=== PATIENT | female | born 1995 | race Hispanic/Latino ===

== ENCOUNTER 2022-01-10 14:15 | Outpatient (CLI) | payer OTHER | END 2022-01-10 14:16 | disposition home or self-care (01) | LOC: CSHLAB 14:15 | PROVIDERS: ATTEND Advanced Practice Midwife | DX: Z20.822 Contact with and (suspected) exposure to COVID-19 (principal) | CPT/HCPCS: 87811 ==

== ENCOUNTER 2022-01-11 19:14 | Inpatient (IN) | payer OTHER ==
[~2022-01-11 19:14] MED LIST: Bupivacaine/Epinephrine 0.25% 30 ML VIAL ONE
[2022-01-11 20:12] LABS: Fetal Membranes Rupture No Membranes Rupture (No Rupture)
[2022-01-11] MEDS ORDERED: hydrALAZINE 20 MG/ML VIAL SLOW IVP PRN ×3 (20:51→21:07)
[2022-01-11 20:56] VITALS: BMI 36.8
[2022-01-11] MEDS ORDERED: Magnesium Sulfate 20 gm/500 ml 20 GM/500 ML BAG ONE (21:03)
[2022-01-11] MEDS ORDERED: Lorazepam 2 MG/ML VIAL SLOW IVP PRN (21:07)
[2022-01-11] MEDS ORDERED: Calcium Gluc 4.6 MEQ/10 ML (100 MG/ML) SLOW IVP PRN (21:07)
[2022-01-11] MEDS ORDERED: Labetalol HCl 100 MG/20 ML VIAL SLOW IVP PRN ×2 (21:07)
[2022-01-11] MEDS ORDERED: Magnesium Sulfate 20 gm/500 ml 20 GM/500 ML BAG IVPB SCH (21:15)
[2022-01-11 21:22] LABS: #Eosinphils 0.1 10x3/uL (0.0-0.5); #Monocytes 0.4 10x3/uL (0.0-1.1); #Neutrophils 4.8 10x3/uL (1.5-8.4); %Basophils 0.3 % (0.0-2.0); %Eosinophils 1.5 % (0.0-6.0); %Neutrophils 65.8 % (40.0-75.0); Hemoglobin 13.5 g/dL (12.0-15.5); Mean Corpuscular HGB CONC 34.8 g/dL (32.0-36.0); Mean Corpuscular Hemoglobin 31.5 pg (27.0-33.0); Mean Corpuscular Volume 90.7 fl (81.6-98.3); Platelet Count 190 10x3/uL (150-450); RBC Distribution Width 14.1 % (11.5-14.5); Red Blood Cell (RBC) Count 4.28 10x6/uL (3.90-5.03); White Blood Cell (WBC) Count 7.3 10x3/uL (3.5-10.5)
[2022-01-11 21:29] LABS: ALT (SGPT) 7 U/L (8-55); AST (SGOT) 13 U/L (5-34); Albumin 3.7 g/dL (3.5-5.0); Alkaline Phosphatase 162 U/L (40-110); Anion Gap 14 mmol/L (10-20); BUN (Urea Nitrogen) 10 mg/dL (7.0-18.7); Bilirubin, Total 0.4 mg/dL (0.2-1.2); Calc. Creatinine Clearance 201 mL/min (70-130); Calcium 9.2 mg/dL (7.8-10.44); Carbon Dioxide 20 mmol/L (22-29); Chloride 107 mmol/L (98-107); Estimated GFR 125; Globulin 2.9 g/dL (2.4-3.5); Glucose 78 mg/dL (70-105); Potassium 3.9 mmol/L (3.5-5.1); Protein, Total 6.6 g/dL (6.0-8.3); Sodium 137 mmol/L (136-145)
[2022-01-11] MEDS ORDERED: Promethazine HCl 25 MG/ML VIAL IM PRN (21:46)
[2022-01-11] MEDS ORDERED: Ondansetron PF 4 MG/2 ML Vial IVP PRN (21:46)
[2022-01-11] MEDS ORDERED: Lidocaine 1% (PF) 30 ML VIAL SC PRN (21:46)
[2022-01-11] MEDS ORDERED: Misoprostol 200 MCG TAB PR PRN (21:46)
[2022-01-11] MEDS ORDERED: Ibuprofen 800 MG TAB PO PRN (21:46)
[2022-01-11] MEDS ORDERED: NS w/ Oxytocin 30 units 500 ML ONE (21:55)
[2022-01-11] MEDS ORDERED: NS w/ Oxytocin 30 units 500 ML IV SCH ×2 (22:00)
[2022-01-11] MEDS ORDERED: Lactated Ringer's 1,000 ML IV SCH (22:00)
[2022-01-11 22:56] LABS: Creatinine, Urine 74.95 mg/dL (47-110)
[2022-01-12 00:11] LABS: HBSAg Index 0.25 S/CO (0-0.99); Hep B Surf Ag Non-Reactive S/CO (NonReactive); Syphilis Antibody Nonreactive (Nonreactive); Syphilis Antibody Index 0.05 S/CO (<1.00 Non-Reactive)
[2022-01-12] MEDS ORDERED: Fentanyl 2 mcg/Bup 0.1% Cadd 100 ML ONE (03:21)
[2022-01-12] MEDS ORDERED: Magnesium Sulfate 20 gm/500 ml 20 GM/500 ML BAG IVPB SCH (12:41)
[2022-01-12] MEDS ORDERED: HYDROcodone/Acetaminophen 5/325 mg Tablet PO PRN ×2 (12:41)
[2022-01-12] MEDS ORDERED: Misoprostol 200 MCG TAB VAG PRN (12:41)
[2022-01-12] MEDS ORDERED: Milk Of Magnesia 30 ML UDCUP PO PRN (12:41)
[2022-01-12] MEDS ORDERED: Calcium Gluc 4.6 MEQ/10 ML (100 MG/ML) SLOW IVP PRN (12:41)
[2022-01-12] MEDS ORDERED: Ondansetron PF 4 MG/2 ML Vial IVP PRN (12:41)
[2022-01-12] MEDS ORDERED: hydrALAZINE 20 MG/ML VIAL SLOW IVP PRN ×2 (12:41)
[2022-01-12] MEDS ORDERED: Lorazepam 2 MG/ML VIAL SLOW IVP PRN (12:41)
[2022-01-12] MEDS ORDERED: Boostrix 0.5 ML (Tdap) VIAL (>/=7 yrs of age) IM ONE (12:41)
[2022-01-12] MEDS ORDERED: NS w/ Oxytocin 30 units 500 ML IV SCH (12:41)
[2022-01-12] MEDS ORDERED: Bisacodyl 10 MG SUPP PR PRN (12:41)
[2022-01-12] MEDS ORDERED: Benzocaine-Menthol 82.5 ML CAN TOP PRN (12:41)
[2022-01-12] MEDS: Ibuprofen 800 MG TAB PO SCH (14:02)
[2022-01-13] MEDS ORDERED: Prenatal Vitamin 1 TAB PO SCH (09:00)
[2022-01-13] MEDS: Ferrous Sulfate 325 MG TAB PO SCH ×2 (10:15→16:29)
[2022-01-13] MEDS: Docusate 100 MG CAP PO SCH ×3 (10:15→21:23)
[2022-01-13] MEDS: Ibuprofen 800 MG TAB PO SCH ×3 (10:16→21:22)
[2022-01-13] MEDS ORDERED: Boostrix 0.5 ML (Tdap) VIAL (>/=7 yrs of age) IM ONE (11:02)
[2022-01-13] MEDS ORDERED: Milk Of Magnesia 30 ML UDCUP PO PRN (11:02)
[2022-01-13] MEDS ORDERED: Bisacodyl 10 MG SUPP PR PRN (11:02)
[2022-01-13] MEDS ORDERED: hydrALAZINE 20 MG/ML VIAL SLOW IVP PRN (11:02)
[2022-01-13] MEDS ORDERED: HYDROcodone/Acetaminophen 5/325 mg Tablet PO PRN ×2 (11:02)
[2022-01-13] MEDS ORDERED: Benzocaine-Menthol 82.5 ML CAN TOP PRN (11:02)
[2022-01-13] MEDS ORDERED: Ondansetron PF 4 MG/2 ML Vial IVP PRN (11:02)
[2022-01-14] MEDS: Ibuprofen 800 MG TAB PO SCH ×3 (05:29→22:12)
[2022-01-14] MEDS: Ferrous Sulfate 325 MG TAB PO SCH ×2 (07:39→16:02)
[2022-01-14] MEDS: Prenatal Vitamin 1 TAB PO SCH (09:03)
[2022-01-14] MEDS: Docusate 100 MG CAP PO SCH ×2 (09:04→22:12)
[2022-01-14] MEDS ORDERED: Labetalol HCl 200 MG TAB PO SCH (16:00)
[2022-01-14] MEDS: Labetalol HCl 200 MG TAB PO SCH (22:11)
[2022-01-15] MEDS: Ibuprofen 800 MG TAB PO SCH ×3 (05:32→21:37)
[2022-01-15] MEDS: Ferrous Sulfate 325 MG TAB PO SCH ×2 (08:15→20:15)
[2022-01-15] MEDS: Docusate 100 MG CAP PO SCH ×2 (08:59→21:37)
[2022-01-15] MEDS: Prenatal Vitamin 1 TAB PO SCH (08:59)
[2022-01-15] MEDS: Labetalol HCl 200 MG TAB PO SCH ×2 (08:59→21:37)
[2022-01-15] MEDS ORDERED: NIFEdipine XL 30 MG TAB PO SCH (14:30)
[2022-01-16] MEDS: Ibuprofen 800 MG TAB PO SCH (06:00)
[2022-01-16] MEDS: Ferrous Sulfate 325 MG TAB PO SCH (07:28)
[2022-01-16] MEDS: Prenatal Vitamin 1 TAB PO SCH (08:49)
[2022-01-16] MEDS: Docusate 100 MG CAP PO SCH (08:49)
[2022-01-16] MEDS: Labetalol HCl 200 MG TAB PO SCH (08:49)
[2022-01-16] MEDS ORDERED: NIFEdipine XL 30 MG TAB PO SCH (09:00)
[2022-01-16 11:57] VITALS: BP 140/81; TEMP 98
== END 2022-01-16 12:00 | disposition home or self-care (01) | DRG 807 ==
LOC: CJX 19:14 → CSHLD 21:42 → CSHPP 01-13 11:21
PROVIDERS: ADMIT Obstetrics & Gynecology; ATTEND Obstetrics & Gynecology
PROC: 10E0XZZ Delivery of Products of Conception, External Approach (ICD-10-PCS; principal; 2022-01-11)
PROC: 0UQMXZZ Repair Vulva, External Approach (ICD-10-PCS; 2022-01-11)
DX: O42.02 Full-term premature rupture of membranes, onset of labor within 24 hours of rupture (principal); Z37.0 Single live birth; Z3A.39 39 weeks gestation of pregnancy; O70.0 First degree perineal laceration during delivery; O14.14 Severe pre-eclampsia complicating childbirth
CPT/HCPCS: 36415; 51702; 80053; 82570; 84112; 84156; 85025; 86780; 86850; 86900; 86901; 87340; 87811; 99285; J2405; J2590; J3475

== ENCOUNTER 2024-01-25 19:30 | Inpatient (IN) | payer OTHER ==
[2024-01-25] MEDS ORDERED: Promethazine HCl 25 MG/ML VIAL IM PRN (20:14)
[2024-01-25] MEDS ORDERED: hydrALAZINE 20 MG/ML VIAL SLOW IVP PRN (20:14)
[2024-01-25] MEDS ORDERED: Acetaminophen 500 MG TAB PO PRN (20:14)
[2024-01-25] MEDS ORDERED: Lidocaine 1% (PF) 30 ML VIAL SC PRN (20:14)
[2024-01-25] MEDS ORDERED: Diphenoxylate HCl/Atropine Tablet PO PRN ×2 (20:14)
[2024-01-25] MEDS ORDERED: Methylergonovine 0.2 MG/ML VIAL IM PRN (20:14)
[2024-01-25] MEDS ORDERED: Ondansetron PF 4 MG/2 ML Vial IVP PRN (20:14)
[2024-01-25] MEDS ORDERED: Tranexamic Acid 1,000 MG/10 ML VIAL IVP PRN (20:14)
[2024-01-25] MEDS ORDERED: Ibuprofen 800 MG TAB PO PRN (20:14)
[2024-01-25] MEDS ORDERED: Misoprostol 200 MCG TAB PR PRN (20:14)
[2024-01-25] MEDS ORDERED: Carboprost 250 MCG/ML AMP IM PRN (20:14)
[2024-01-25] MEDS ORDERED: fentaNYL 50 mcg/mL 1 mL Vial SLOW IVP PRN (20:14)
[2024-01-25] MEDS ORDERED: Misoprostol 100 MCG TAB VAG SCH (20:15)
[2024-01-25] MEDS ORDERED: Lactated Ringer's 1,000 ML IV SCH (20:15)
[2024-01-25] MEDS ORDERED: Oxytocin 30 units/NS 500 ML 500 ML IV SCH ×2 (20:15)
[2024-01-25 22:23] LABS: Hematocrit 37.6 % (34.9-44.5); Hemoglobin 12.6 g/dL (12.0-15.5); Mean Corpuscular HGB CONC 33.5 g/dL (32.0-36.0); Mean Corpuscular Volume 92.4 fL (81.6-98.3); Mean Platelet Volume 10.9 fL (7.4-10.4); Platelet Count 189 10x3/uL (150-450); RBC Distribution Width 13.6 % (11.5-14.5); Red Blood Cell (RBC) Count 4.07 10x6/uL (3.90-5.03); White Blood Cell (WBC) Count 8.4 10x3/uL (3.5-10.5)
[2024-01-25 22:54] LABS: HBsAg Index 0.22 S/CO (0-0.99); Hep B Surf Ag - L&D Non-Reactive S/CO (NonReactive); Syphilis Antibody Nonreactive (Nonreactive); Syphilis Antibody Index 0.05 S/CO (<1.00 Non-Reactive)
[2024-01-26 03:51] VITALS: BMI 36.8
[2024-01-26] MEDS: Oxytocin 30 units/NS 500 ML 500 ML IV SCH (05:28)
[2024-01-26] MEDS: fentaNYL/Ropivacaine Epidural 100 ML ONE (09:50)
[2024-01-26] MEDS ORDERED: Acetaminophen 325 MG TAB PO PRN (10:46)
[2024-01-26] MEDS ORDERED: ePHEDrine Sulfate 50 MG/10 ML VIAL SLOW IVP PRN (10:46)
[2024-01-26] MEDS ORDERED: Moisturizing Cream (Eucerin) 113 GM JAR TOP PRN ×2 (10:46→13:13)
[2024-01-26] MEDS ORDERED: Promethazine HCl 25 MG/ML VIAL IM PRN ×3 (10:46→16:38)
[2024-01-26] MEDS ORDERED: Ondansetron PF 4 MG/2 ML Vial IVP PRN ×4 (10:46→16:38)
[2024-01-26] MEDS ORDERED: Naloxone HCl 0.4 mg/ml Vial IVP PRN ×4 (10:46→13:13)
[2024-01-26] MEDS ORDERED: diphenhydrAMINE 50 MG/ML VIAL IVP PRN ×2 (10:46→13:13)
[2024-01-26] MEDS ORDERED: fentaNYL 2 mcg/Ropivacaine 0.2% Epidural 100 ML CADD EPIDURAL SCH (11:00)
[2024-01-26] MEDS ORDERED: Communication Order-Pharmacy FS SCH ×2 (11:00→13:15)
[2024-01-26] MEDS ORDERED: Lactated Ringer's 500 ML IV PRN (11:02)
[2024-01-26] MEDS ORDERED: Famotidine/PF 20 mg/2ml Vial SLOW IVP PRN (12:02)
[2024-01-26] MEDS ORDERED: Bicitra 30 ML UDCUP PO PRN (12:02)
[2024-01-26] MEDS ORDERED: Azithromycin 500 MG in Sodium Chloride 0.9% 250 ML 250 ML IVPB ONE (12:05)
[2024-01-26] MEDS ORDERED: CEFAZOLIN 2 GM in Sodium Chloride 0.9% 100 ML IVPB SCH (12:15)
[2024-01-26] MEDS ORDERED: fentaNYL 50 mcg/mL 1 mL Vial SLOW IVP PRN (13:13)
[2024-01-26] MEDS ORDERED: HYDROmorphone 0.5 MG/0.5 ML SYRINGE SLOW IVP PRN (13:13)
[2024-01-26] MEDS ORDERED: Naloxone HCl 0.4 mg/ml Vial IV PRN (13:13)
[2024-01-26] MEDS ORDERED: Meperidine HCl/PF 25 MG (1 mL) VIAL SLOW IVP PRN (13:13)
[2024-01-26] MEDS ORDERED: Ketorolac Tromethamine 30 MG (1 mL) VIAL IVP SCH (13:15)
[2024-01-26] MEDS ORDERED: Oxytocin 30 units/NS 500 ML 500 ML IV SCH (16:38)
[2024-01-26] MEDS ORDERED: Bisacodyl 10 MG SUPP PR PRN (16:38)
[2024-01-26] MEDS ORDERED: Boostrix 0.5 ML (Tdap) VIAL (>/=7 yrs of age) IM ONE (16:38)
[2024-01-26] MEDS ORDERED: diphenhydrAMINE 25 MG CAP PO PRN (16:38)
[2024-01-26] MEDS ORDERED: Lanolin Ointment 7 GM TUBE TOP PRN (16:38)
[2024-01-26] MEDS ORDERED: Misoprostol 200 MCG TAB PR PRN (16:38)
[2024-01-26] MEDS ORDERED: hydrALAZINE 20 MG/ML VIAL SLOW IVP PRN (16:38)
[2024-01-26] MEDS: Azithromycin 500 MG VIAL ONE (16:46)
[2024-01-26] MEDS: fentaNYL 50 mcg/mL 1 mL Vial ONE ×3 (16:46→16:47)
[2024-01-26] MEDS: ePHEDrine Sulfate 50 MG/10 ML VIAL ONE (16:46)
[2024-01-26] MEDS: CEFAZOLIN 2 GM VIAL ONE (16:46)
[2024-01-26] MEDS: Phytonadione Neonatal 1 MG/0.5 ML AMP ONE (16:47)
[2024-01-26] MEDS: Erythromycin Base 0.5% Oint 1 GM TUBE ONE (16:47)
[2024-01-26] MEDS: PROPOFOL 20 ML ONE (16:47)
[2024-01-26] MEDS: Midazolam HCl 2 mg/2 ml Vial ONE (16:48)
[2024-01-26] MEDS: Docusate 100 MG CAP PO SCH (20:59)
[2024-01-26] MEDS: Ketorolac Tromethamine 30 MG (1 mL) VIAL IVP PRN (20:59)
[2024-01-27] MEDS ORDERED: HYDROcodone/Acetaminophen 5/325 mg Tablet PO PRN (02:15)
[2024-01-27] MEDS: Ferrous Sulfate 325 MG TAB PO SCH (04:19)
[2024-01-27 06:50] LABS: Hematocrit 31.3 % (34.9-44.5); Hemoglobin 10.4 g/dL (12.0-15.5); Mean Corpuscular HGB CONC 33.2 g/dL (32.0-36.0); Mean Corpuscular Hemoglobin 30.8 pg (27.0-33.0); Mean Corpuscular Volume 92.6 fL (81.6-98.3); Mean Platelet Volume 10.9 fL (7.4-10.4); Platelet Count 140 10x3/uL (150-450); RBC Distribution Width 13.7 % (11.5-14.5); Red Blood Cell (RBC) Count 3.38 10x6/uL (3.90-5.03)
[2024-01-27] MEDS: HYDROcodone/Acetaminophen 5/325 mg Tablet PO PRN (08:37)
[2024-01-27] MEDS: Simethicone Chewable 80 MG TAB PO PRN (08:37)
[2024-01-27] MEDS: Prenatal Vitamin 1 TAB PO SCH (08:37)
[2024-01-27] MEDS: Ibuprofen 800 MG TAB PO SCH (22:32)
[2024-01-28 05:46] VITALS: TEMP 97.8
[2024-01-28 07:46] VITALS: BP 121/73
== END 2024-01-28 14:30 | disposition home or self-care (01) | DRG 787 ==
LOC: CSHLD 19:43 → CSHPP 01-26 16:00
PROVIDERS: ADMIT Family Medicine; ATTEND Family Medicine
PROC: 10D00Z1 Extraction of Products of Conception, Low, Open Approach (ICD-10-PCS; principal; 2024-01-26)
DX: O99.214 Obesity complicating childbirth (principal); D62 Acute posthemorrhagic anemia; Z3A.39 39 weeks gestation of pregnancy; Z37.0 Single live birth; O32.1XX0 Maternal care for breech presentation, not applicable or unspecified; E66.8 Other obesity
CPT/HCPCS: 36415; 51702; 85027; 86780; 86850; 86900; 86901; 87340; J1885; J2250; J2590; J2704; J3010